=== PATIENT | female | born 1985 | race Caucasian/White ===

== ENCOUNTER 2017-03-01 08:11 | Inpatient (IN) | payer BC, OTHER ==
[~2017-03-01] VITALS: Ht 162.6 cm; Wt 61.2 kg
[2017-03-01 12:45] VITALS: BP 108/64
[2017-03-01] MEDS ORDERED: CLONIDINE HCL 0.1 MG TABLET PO PRN (12:45)
[2017-03-01] MEDS ORDERED: DICYCLOMINE HCL 20 MG TABLET PO PRN (12:45)
[2017-03-01] MEDS ORDERED: HYDROXYZINE PAMOATE 25 MG CAPSULE PO PRN (12:45)
[2017-03-01] MEDS ORDERED: LORAZEPAM 1 MG TABLET PO PRN ×2 (12:45)
[2017-03-01] MEDS ORDERED: LOPERAMIDE HCL 2 MG CAPSULE PO PRN ×2 (12:45)
[2017-03-01] MEDS ORDERED: IBUPROFEN 600 MG TABLET PO PRN (12:45)
[2017-03-01] MEDS ORDERED: METHOCARBAMOL 750 MG TABLET PO PRN (12:45)
[2017-03-01] MEDS ORDERED: diphenhydrAMINE 50 MG CAPSULE PO PRN (12:45)
[2017-03-01] MEDS ORDERED: MIRALAX 17 GM POWD.PACK PO PRN (12:45)
[2017-03-01] MEDS ORDERED: BUPRENORPHINE HCL 2 MG TAB.SUBL SL PRN (12:45)
[2017-03-01] MEDS ORDERED: ALBUTEROL SULFATE 2.5 MG/ 0.5 ML NEBU NEB PRN (12:45)
[2017-03-01] MEDS ORDERED: MAG HYDROX/AL HYDROX/SIMETH 30 ML LIQUID UDC PO PRN (12:45)
[2017-03-01] MEDS ORDERED: ONDANSETRON 4 MG/2 ML VIAL IM PRN (12:45)
[2017-03-01] MEDS ORDERED: MAGNESIUM HYDROXIDE 30 ML LIQUID UDC PO PRN (12:45)
[2017-03-01] MEDS ORDERED: LORAZEPAM 2 MG/1 ML VIAL IM PRN (12:45)
--- NOTE | 2017-03-01 12:50 | NUR ---
Intake assessment Pt seen down in intake, VS are stable. Pt is cleared to come up to unit. Will continue intake assessment upon arrival to unit. Dr Carter has seen pt in intake and has already placed orders.
--- NOTE | 2017-03-01 12:53 | NUR ---
Admission Note Pt was admitted for benzo, ETOH and opiate dependence. Pt ambulated on the unit, is primary source of information. Denies any allergies to foods of medications. Pt is a full code, on a regular diet. Pt VS upon admission are: BP 111/63, HR 112 T 97.9 R: 18 SpO2 98% on RA. Denies any CP or SOB. Pt states she is 5'4'', weighs 135 pounds. Denies any pain. States her LMP was "2 months ago, I have irregular periods". LBM was 02/27/17, pt states this is normal for her. Skin check done, body check done by [employer]. Skin is intact, no open wounds noted. Pt states that she does not want a pna vaccine. Gave verbal consent for HIV test. Pt states she has a PMHx of asthma, and anxiety. Pt home med reconciled, Dr Carter aware. Pt states that she has been to another rehab once in 11/16/16 for 28 days. Pt denies any history of abuse. Pt uses the following substances: ETOH- vodka, 1 pint a day to every other day x 2 months, last used 02/27/17 - 1 pint PO. Benzo- xanax- 1mg daily x 2 months, last use 02/28/17 1mg PO. Heroin- 1GM IV daily x 2 months, last use 0.5 G 03/01/17 prior to admission. Methamphetamine- 0.5GM IV daily x 2 months, last use 03/01/17. Dr Carter is aware of admission, has placed orders for pt to start ativan taper, and subutex taper to begin on 03/02/17 in the AM. Pt states that she does not have a PCP. All needs addressed at this time, pt oriented to unit. Will continue to monitor pt.
[2017-03-01] MEDS ORDERED: NALT50TA PO ×2 (13:48→14:52)
[2017-03-01] MEDS ORDERED: ALBU8.5H8 INH (13:48)
[2017-03-01] MEDS ORDERED: QUET400T PO (13:48)
[2017-03-01] MEDS ORDERED: BUSP10TA3 PO (13:48)
[2017-03-01] MEDS ORDERED: METH4TAB16 PO (13:48)
[2017-03-01] MEDS ORDERED: BECL8.7A6 IH (13:48)
[2017-03-01] MEDS ORDERED: GABA-534 PO (13:48)
[2017-03-01 13:53] LABS: *URINE HCG, QUAL NEGATIVE (NEGATIVE)
[2017-03-01] MEDS ORDERED: THIAMINE HCL 200 MG/2 ML VIAL IM ONE (14:00)
[2017-03-01 14:03] LABS: *AMPHETAMINE, URINE NEGATIVE (NEGATIVE); *BARBITURATE, URINE NEGATIVE (NEGATIVE); *CANNABINOID, URINE NEGATIVE (NEGATIVE); *COCCAINE, URINE NEGATIVE (NEGATIVE); *OPIATE, URINE POSITIVE (NEGATIVE); *PHENCYCLIDINE SCREEN,URINE NEGATIVE (NEGATIVE)
[2017-03-01] MEDS: LORAZEPAM 1 MG TABLET PO SCH ×3 (14:23→21:21)
[2017-03-01] MEDS ORDERED: SUMA100T16 PO (14:39)
[2017-03-01] MEDS ORDERED: SUMA50TA PO (14:39)
[2017-03-01] MEDS ORDERED: PROP10TA10 PO (14:40)
[2017-03-01] MEDS ORDERED: OXCA150T5 PO (14:47)
[2017-03-01] MEDS ORDERED: IBUP-1955 PO (14:49)
[2017-03-01] MEDS ORDERED: MELA5TAB PO (14:50)
[2017-03-01] MEDS ORDERED: DESI25TA16 PO (14:59)
[2017-03-01] MEDS ORDERED: GABAPENTIN 300 MG CAPSULE PO SCH ×3 (15:00→21:00)
[2017-03-01] MEDS ORDERED: RISP2TAB5 PO (15:00)
[2017-03-01] MEDS ORDERED: ALBUTEROL SULFATE 8 GM HFA.AER.AD INH SCH (15:30)
[2017-03-01] MEDS ORDERED: SUMATRIPTAN SUCCINATE 50 MG TABLET PO SCH (15:30)
[2017-03-01 16:50] LABS: BASOPHILS % (AUTO) 0.5 % (0.0-2.0); EOSINOPHILS # (AUTO) 0.2 K/uL (0.0-0.7); EOSINOPHILS % (AUTO) 2.6 % (0.0-7.0); HEMOGLOBIN 14.2 G/DL (12.0-16.0); LYMPHOCYTES # (AUTO) 1.4 K/UL (0.8-4.8); LYMPHOCYTES % (AUTO) 17.2 % (20.5-51.5); MEAN CORPUSCULAR HEMOGLOBIN 30.4 UUG (27.0-31.0); MEAN CORPUSCULAR HGB CONC 34 g/dL (32.0-37.0); MEAN CORPUSCULAR VOLUME 89.8 FL (81.0-99.0); MONOCYTES # (AUTO) 0.5 K/UL (0.1-1.30); MONOCYTES % (AUTO) 5.9 % (0.0-11.0); NEUTROPHILS # (AUTO) 6.3 K/UL (1.8-8.9); NEUTROPHILS % (AUTO) 73.8 % (38.5-71.5); PLATELET COUNT (AUTO) 241 K/UL (150-450); RED BLOOD CELL COUNT(AUTO) 4.67 MIL/UL (4.2-5.4); WHITE BLOOD COUNT (AUTO) 8.4 K/UL (4.0-11.2)
[2017-03-01 16:56] LABS: ETHANOL < 3 MG/DL (0-0)
[2017-03-01 16:57] LABS: ALANINE AMINOTRANSFERASE 107 U/L (14-59); ALKALINE PHOSPHATASE 122 U/L (50-136); ASPARTATE AMINOTRANSFERASE 39 U/L (15-37); BILIRUBIN,TOTAL 0.2 mg/dL (0.2-1.0); CARBON DIOXIDE 30 mmol/L (21-32); CHLORIDE 101 mmol/L (98-107); CREATININE 0.9 mg/dL (0.6-1.3); GLUCOSE 116 mg/dL (74-106); MAGNESIUM 1.7 mg/dL (1.8-2.4); POTASSIUM 4.1 mmol/L (3.5-5.1); TOTAL PROTEIN, SERUM 7.7 g/dL (6.4-8.2); UREA NITROGEN, BLOOD 16 mg/dL (7-18)
[2017-03-01 16:58] LABS: AMYLASE 37 U/L (25-115); LIPASE 127 U/L (73-393)
[2017-03-01 17:00] VITALS: BP 121/74
[2017-03-01] MEDS: GABAPENTIN 400 MG CAPSULE PO SCH (17:00)
[2017-03-01] MEDS ORDERED: PROAIR IH PRN (17:15)
[2017-03-01] MEDS ORDERED: Medication Not On Formulary EA (Melatonin 1 TAB) PO SCH (18:00)
--- NOTE | 2017-03-01 19:04 | NUR ---
End of shift note Pt was admitted for benzo, etoh, and opiate dependence. Pt has a PMHx of anxiety and asthma. Pt denies any allergies, is a full code and a regular diet. Pt started on an ativan taper during the shift, pt is on PRN subutex to manage her s/s of opiate withdrawal. Pt has a recent COWS of 6 and CIWA of 4. Pt ate 100% of her meals, drank 1355ml of fluids, had 3 voids. Pt did not require any PRN medication. All needs addressed at this time. SBAR report to be given to oncoming shift.
--- NOTE | 2017-03-01 19:45 | NUR ---
Start of Shift Note Pt was admitted today for benzo, ETOH and opiate dependence. She has NKA. Pt is a full code, on a regular diet. Pt uses the following substances: ETOH- vodka, 1 pint a day to every other day x 2 months, last used 02/27/17 - 1 pint PO. Benzo- xanax- 1mg daily x 2 months, last use 02/28/17 1mg PO. Heroin- 1GM IV daily x 2 months, last use 0.5 G 03/01/17 prior to admission. Methamphetamine- 0.5GM IV daily x 2 months, last use 03/01/17. Patient has a past medical history of asthma, and anxiety. Patient to start ativan taper, and subutex taper to begin on 03/02/17 in the AM. Last CIWA 6, COWS 4. EKG ordered for increased HR. Safety precautions in place, bed in lowest position, side rails up x 2. All needs addressed at this time, pt oriented to unit. Will continue to monitor pt.
[2017-03-01 20:00] VITALS: BP 99/60
[2017-03-01] MEDS: MELATONIN 5MG PO SCH (21:21)
[2017-03-02 00:04] VITALS: BP 118/71
[2017-03-02 04:00] VITALS: BP 118/71
--- NOTE | 2017-03-02 07:00 | NUR ---
End of shift report: Patient is a 31 year old female admitted on 03-02-17 for Benzodiazepine, ETOH, and opiate detox. Patient has past medical history of Asthma and anxiety. She has NKA, is a full code, and on a regular diet. Patient will begin Subutex and Ativan taper this AM. Vital signs at 2000: 99/60, P 110, T 98.2, SPO2 95% on RA. R 16. COWS 4, CIWA 1. VS at 0000: BP 127/74, P 71, SPO2 97%, T 98.1, R 16. COWS 1, CIWA 2. Patient VS at 0400 BP 108/72, P 103, SPO2 97% on RA, R 16, T 98.0 CIWA 1, COWS 3.. Patient had EKG completed on 03-01-17 for tachychardia. Intake 473 ml Output 1 void Slept a total of 10 hours. Safety measures in place. Bed in lowest position, call light in reach. Endorsement to AM nurse.
--- NOTE | 2017-03-02 07:01 | NUR ---
Start of Shift Notes: Received patient in her room. Alert and oriented x 4. Verbally responsive. Able to make needs known. Respirations even and unlabored. No SOB noted. SKin warm and dry to touch. Abdomen soft and non-distended. BS (+) in all 4 quadrants. No complains of N/V/D or constipation noted. Voids independently. Ambulatory ad chris with steady gait. Patient is a 31 year old female admitted for BZO/ETOH and opiate dependence who was placed on a 5-day Ativan and 5-day Subutex taper as ordered. 5-day Ativan was started on 03/01/2017 and 5-day Subutex taper will be started today. Has past medical hx of asthma, and anxiety. NKA. FULL CODE. Regular diet. On fall and seizure precautions. Prior to admission, patient was using 1 mg of Xanax PO, 1 pint of Vodka, 1 gram of Heroin IV and 1/2 gram of methamphetamine IV. Educated patient on her current plan of care for the day and her medication regimen. Encouraged oral fluid intake and encouraged group participation to learn new skills to prevent relapse. On fall and seizure precautions. Will continue to monitor closely.
[2017-03-02 08:34] VITALS: BP 118/81
[2017-03-02] MEDS: FOLIC ACID 1 MG TABLET PO SCH (08:38)
[2017-03-02] MEDS: GABAPENTIN 400 MG CAPSULE PO SCH ×3 (08:38→17:10)
[2017-03-02] MEDS: DOCUSATE SODIUM 250 MG CAPSULE PO SCH (08:38)
[2017-03-02] MEDS: MULTIVITAMINS,THERAPEUTIC TABLET PO SCH (08:38)
[2017-03-02] MEDS: LORAZEPAM 1 MG TABLET PO SCH ×3 (08:39→21:35)
[2017-03-02] MEDS: QVAR 80MCG INH SCH ×2 (08:39→21:39)
[2017-03-02] MEDS: THIAMINE HCL 100 MG TABLET PO SCH (08:39)
[2017-03-02] MEDS: BUPRENORPHINE HCL 2 MG TAB.SUBL SL SCH ×4 (08:40→21:34)
[2017-03-02] MEDS ORDERED: TUBERCULIN,PURIF.PROT.DERIV. 5 TU/0.1 ML TEST ID ONE (09:00)
[2017-03-02] MEDS ORDERED: 5 DAY TAPER BUPRENORPHINE -SERENITY PROTOCOL SL PRN (09:00)
[2017-03-02] MEDS ORDERED: PROPRANOLOL HCL 10 MG TABLET PO SCH (11:15)
[2017-03-02 13:04] VITALS: BP 118/82
[2017-03-02] MEDS: ONDANSETRON ODT 4 MG TAB.RAPDIS SL PRN ×3 (13:06→22:37)
[2017-03-02] MEDS: busPIRone 10 MG TABLET PO SCH ×2 (13:06→17:10)
--- NOTE | 2017-03-02 13:06 | NUR ---
PRN ZOFRAN Patient c/o nausea, administered Zofran 4mg sl as ordered, will monitor effectiveness of medication.
[2017-03-02] MEDS: PROPRANOLOL HCL 10 MG TABLET PO SCH ×2 (13:09→17:10)
[2017-03-02] MEDS: METHYLPREDNISOLONE 4 MG PO SCH ×2 (13:16→17:12)
--- NOTE | 2017-03-02 13:51 | NUR ---
ZOFRAN REASSESSMENT/PRN ZOFRAN IM Medication effective, patient reports still feels nauseous, and had one episode of vomiting. Patient was administered Zofran 4mg IM as ordered, will monitor effectiveness, MD aware.
[2017-03-02] MEDS ORDERED: LORAZEPAM 1 MG TABLET PO ONE (14:15)
--- NOTE | 2017-03-02 14:21 | NUR ---
ZOFRAN REASSESSMENT Patient reports Zofran 4mg IM injection with relief, no c/o nausea, no further episodes of vomiting noted, will continue to monitor.
[2017-03-02] MEDS ORDERED: SUMATRIPTAN SUCCINATE 50 MG TABLET PO PRN (15:30)
[2017-03-02 17:00] VITALS: BP 100/70
--- NOTE | 2017-03-02 18:37 | NUR ---
END OF SHIFT Patient alert and oriented x4, vital signs were stable during shift. Patient with admitting Dx: ETOH/BZO/opiate dependence, patient started on 5 day Ativan taper as ordered and started on Subutex taper as ordered, well tolerated, first dose of Subutex administered at 0900 as ordered, well tolerated, no ASE noted. 0900 assessment patient presented with: tremors that can be felt but not seen, anxiety, mild head fullness, heart rate of 114, restlessness, mild bone and joint aches, nasal stuffiness, stomach cramps, and tremors that can be felt but not seen, with cow score of: 9 and ciwa score of: 7; 1300 assessment patient presented with: nausea, tremors that can be felt but not seen, anxiety, mild head fullness, heart rate of 105, restlessness, mild bone and joint aches, nasal stuffiness, stomach cramps, and tremors that can be felt but not seen, with cow score of: 10 and ciwa score of:11; 1700 patient presented with: c/o chills, restlessness, dilated pupils, mild bone and joint aches, tremors that can be felt but not seen, anxiety and barely sweating with cow score of: 9 and ciwa score of: 6. Detox medications effective at reducing withdrawal symptoms. Encouraged adequate PO fluid intake as tolerated. During shift patient received PRN: Zofran Po and Zofran IM as ordered, medications effective one hour post administration. Patient denies any SI/HI. Encouraged patient to attend group therapies/sessions to learn new coping skills to prevent relapse. Vital signs were stable during shift. Safety measures in place. Will continue to monitor.
--- NOTE | 2017-03-02 19:15 | NUR ---
START OF SHIFT NOTE : Pt. is 31 years old female admitted for ETOH/BZO/opiate dependence. ,patient started on 5 day Ativan taper as ordered and started on Subutex taper as ordered, well tolerated, no ASE noted. 1700 patient presented with: c/o chills, restlessness, dilated pupils, mild bone and joint aches, tremors that can be felt but not seen, anxiety and barely sweating with cow score of: 9 and ciwa score of: 6. Detox medications effective at reducing withdrawal symptoms. Encouraged adequate PO fluid intake as tolerated. Patient denies any SI/HI. Encouraged patient to attend group therapies/sessions to learn new coping skills to prevent relapse. Safety measures in place : bed on lowest position with side rails x2 up for safety, call light within reach. Will continue to monitor closely and offer help.
[2017-03-02 20:00] VITALS: BP 140/77
--- NOTE | 2017-03-02 21:33 | NUR ---
PRN ZOFRAN Pt. complains of nausea, vomited x1. PRN ZOFRAN given as ordered. Safety measures in place : bed on lowest position with side rails x2 up for safety, call light within reach. Will continue to monitor closely and offer help.
[2017-03-02] MEDS: QUETIAPINE FUMARATE 200 MG TABLET PO SCH (21:34)
[2017-03-02] MEDS: MELATONIN 5MG PO SCH (21:40)
--- NOTE | 2017-03-02 22:33 | NUR ---
REASSESSMENT JAZMÍN Pt. is sleeping , RR=16, unlabored and even. Safety measures in place : bed on lowest position with side rails x2 up for safety, call light within reach. Will continue to monitor closely and offer help.
[2017-03-03 04:00] VITALS: BP 95/61
[2017-03-03 04:08] LABS: HEPATITIS B SURFACE AG Negative (Negative)
--- NOTE | 2017-03-03 06:39 | NUR ---
END OF SHIFT NOTE : Pt. is 31 years old female admitted for ETOH/BZO/opiate dependence. ,patient started on 5 day Ativan taper as ordered and started on Subutex taper as ordered, well tolerated, no ASE noted. 1700 patient presented with: c/o chills, restlessness, dilated pupils, mild bone and joint aches, tremors that can be felt but not seen, anxiety and barely sweating. Detox medications effective at reducing withdrawal symptoms. Encouraged adequate PO fluid intake as tolerated. Patient denies any SI/HI. Encouraged patient to attend group therapies/sessions to learn new coping skills to prevent relapse Pt remains compliant with the treatment plan. PRN ZOFRAN given during my shift. V/S remain WNL. RR=16, even and unlabored, lungs clear upon auscultation, abdomen soft and non- distended. Pt. vomited x2 in the evening. LAST CIWA=3 ,COWS=4 at 0400 , QGTLOT=140 ml, voided x 1, slept 10 hours. Safety measures in place : bed on lowest position with side rails x2 up for safety, call light within reach. Will continue to monitor closely and offer help.
--- NOTE | 2017-03-03 07:56 | NUR ---
Start of shift note; Received report from night nurse. Patient is a 31 year old admitted on 03/01/17 for Benzo/ETOH/Opiate dependence. Patient was placed on a 5 day Ativan and 5 day Subutex taper. Patient reported history of asthma and anxiety. NKA, on regular diet and on full code status. Patient received PRN Zofran yesterday for N/V noted to be effective. Patient slept for 10 hours, last COWS is 4 and last CIWA score is 3 at 0400. Patient is on fall and seizure precaution. Bed in lowest position, call light within reach. Will continue to monitor patient.
[2017-03-03 08:00] VITALS: BP 110/72
[2017-03-03] MEDS: QVAR 80MCG INH SCH ×2 (08:43→20:58)
[2017-03-03] MEDS: busPIRone 10 MG TABLET PO SCH ×3 (08:43→16:35)
[2017-03-03] MEDS: DOCUSATE SODIUM 250 MG CAPSULE PO SCH (08:44)
[2017-03-03] MEDS: LORAZEPAM 1 MG TABLET PO SCH ×4 (08:44→20:58)
[2017-03-03] MEDS: FOLIC ACID 1 MG TABLET PO SCH (08:44)
[2017-03-03] MEDS: BUPRENORPHINE HCL 2 MG TAB.SUBL SL SCH ×3 (08:44→20:59)
[2017-03-03] MEDS: MULTIVITAMINS,THERAPEUTIC TABLET PO SCH (08:44)
[2017-03-03] MEDS: THIAMINE HCL 100 MG TABLET PO SCH (08:44)
[2017-03-03] MEDS: GABAPENTIN 400 MG CAPSULE PO SCH ×3 (08:44→16:35)
[2017-03-03] MEDS: PROPRANOLOL HCL 10 MG TABLET PO SCH ×3 (08:44→16:37)
--- NOTE | 2017-03-03 09:30 | NUR ---
Therapist prompted client about group times. Client stated she would try to attend.
[2017-03-03 12:00] VITALS: BP 116/82
[2017-03-03] MEDS: ONDANSETRON ODT 4 MG TAB.RAPDIS SL PRN (13:17)
--- NOTE | 2017-03-03 13:23 | NUR ---
Re-assessment; Patient denies nausea at this time. PRN medication is effective. Will continue to monitor patient.
--- NOTE | 2017-03-03 13:23 | NUR ---
PRN medication; Patient is complaining of nausea no emesis noted. PRN Zofran ODT given for nausea. Will continue to monitor patient for effectiveness of medication.
[2017-03-03 16:00] VITALS: BP 116/73
--- NOTE | 2017-03-03 18:59 | NUR ---
End of shift note; Patient is AOX4. Patient is a 31 year old admitted on 03/01/17 for Benzo/ETOH/Opiate dependence. Patient was placed on a 5 day Ativan and 5 day Subutex taper. Patient reported history of asthma and anxiety. NKA, on regular diet and on full code status. Patient remained compliant with treatment plan. Medications were effective in reducing withdrawal symptoms. All safety measures secured. Met all needs.
--- NOTE | 2017-03-03 19:15 | NUR ---
START OF SHIFT NOTE : Pt. is 31 years old female admitted for ETOH/BZO/opiate dependence. ,patient started on 5 day Ativan taper as ordered and started on Subutex taper as ordered, well tolerated, no ASE noted. 1700 patient presented with: c/o chills, restlessness, dilated pupils, mild bone and joint aches, tremors that can be felt but not seen, anxiety and barely sweating with cow score of: 5 and ciwa score of: 2 at 16:00. Detox medications effective at reducing withdrawal symptoms. Encouraged adequate PO fluid intake as tolerated. Patient denies any SI/HI. Encouraged patient to attend group therapies/sessions to learn new coping skills to prevent relapse. Safety measures in place : bed on lowest position with side rails x2 up for safety, call light within reach. Will continue to monitor closely and offer help.
[2017-03-03 20:00] VITALS: BP 128/76
[2017-03-03] MEDS: MELATONIN 5MG PO SCH (20:57)
[2017-03-03] MEDS: QUETIAPINE FUMARATE 200 MG TABLET PO SCH (20:59)
--- NOTE | 2017-03-04 06:34 | NUR ---
END OF SHIFT NOTE : Pt. is 31 years old female admitted for ETOH/BZO/opiate dependence. ,patient started on 5 day Ativan taper as ordered and started on Subutex taper as ordered, well tolerated, no ASE noted. Detox medications effective at reducing withdrawal symptoms. Encouraged adequate PO fluid intake as tolerated. Patient denies any SI/HI. Encouraged patient to attend group therapies/sessions to learn new coping skills to prevent relapse. Pt remains compliant with the treatment plan. No PRNs were given during my shift. V/S remain WNL. RR=16, even and unlabored, lungs clear upon auscultation, abdomen soft and non- distended. Pt denies nausea, vomiting and diarrhea. LAST CIWA=2 ,COWS=3 at 0400 , INTAKE= 500 ml, voided x2 , slept 6 hours. Safety measures in place : bed on lowest position with side rails x2 up for safety, call light within reach. Will continue to monitor closely and offer help.
--- NOTE | 2017-03-04 07:50 | NUR ---
Start of shift note; Received report from night nurse. Patient is a 31 year old admitted on 03/01/17 for Benzo/ETOH/Opiate dependence. Patient was placed on a 5 day Ativan and 5 day Subutex taper. Patient reported history of asthma and anxiety. NKA, on regular diet and on full code status. Patient slept for 6 hours. Patient is on fall and seizure precaution. Bed in lowest position, call light within reach. Patient had an uneventful night. Will continue to monitor patient.
[2017-03-04 08:00] VITALS: BP 107/78
[2017-03-04] MEDS: GABAPENTIN 400 MG CAPSULE PO SCH ×3 (08:37→16:45)
[2017-03-04] MEDS: QVAR 80MCG INH SCH ×2 (08:37→21:32)
[2017-03-04] MEDS: MULTIVITAMINS,THERAPEUTIC TABLET PO SCH (08:38)
[2017-03-04] MEDS: DOCUSATE SODIUM 250 MG CAPSULE PO SCH (08:38)
[2017-03-04] MEDS: FOLIC ACID 1 MG TABLET PO SCH (08:38)
[2017-03-04] MEDS: LORAZEPAM 1 MG TABLET PO SCH ×3 (08:38→21:32)
[2017-03-04] MEDS: PROPRANOLOL HCL 10 MG TABLET PO SCH ×3 (08:38→16:45)
[2017-03-04] MEDS: THIAMINE HCL 100 MG TABLET PO SCH (08:38)
[2017-03-04] MEDS: busPIRone 10 MG TABLET PO SCH ×3 (08:38→16:45)
[2017-03-04] MEDS ORDERED: BUPRENORPHINE HCL 2 MG TAB.SUBL SL SCH (09:00)
[2017-03-04 12:00] VITALS: BP 118/78
[2017-03-04] MEDS: BUPRENORPHINE HCL 2 MG TAB.SUBL SL SCH ×2 (15:29→21:33)
[2017-03-04 16:00] VITALS: BP 119/80
--- NOTE | 2017-03-04 18:34 | NUR ---
End of shift note; Patient is AOX4. Patient is a 31 year old admitted on 03/01/17 for Benzo/ETOH/Opiate dependence. Patient was placed on a 5 day Ativan and 5 day Subutex taper. Patient reported history of asthma and anxiety. NKA, on regular diet and on full code status. Patient remained compliant with treatment plan. Medications were effective in reducing withdrawal symptoms. Patient participated in group activities and therapies. All safety measures secured. Met all needs.
--- NOTE | 2017-03-04 19:15 | NUR ---
START OF SHIFT NOTE : Pt. is 31 years old female admitted for ETOH/BZO/opiate dependence. ,patient started on 5 day Ativan taper as ordered and started on Subutex taper as ordered, well tolerated, no ASE noted. Pt. is at meeting right now. Detox medications effective at reducing withdrawal symptoms. Encouraged adequate PO fluid intake as tolerated. Patient denies any SI/HI. Encouraged patient to attend group therapies/sessions to learn new coping skills to prevent relapse. Safety measures in place : bed on lowest position with side rails x2 up for safety, call light within reach. Will continue to monitor closely and offer help.
[2017-03-04 20:00] VITALS: BP 130/78
[2017-03-04] MEDS: QUETIAPINE FUMARATE 200 MG TABLET PO SCH (21:32)
[2017-03-04] MEDS: MELATONIN 5MG PO SCH (21:32)
--- NOTE | 2017-03-05 06:34 | NUR ---
END OF SHIFT NOTE : Pt. is 31 years old female admitted for ETOH/BZO/opiate dependence ,patient started on 5 day Ativan taper as ordered and started on Subutex taper as ordered, well tolerated, no ASE noted. Pt. is at meeting right now. Detox medications effective at reducing withdrawal symptoms. Pt remains compliant with the treatment plan. No PRNs were given during my shift. V/S remain WNL. RR=16, even and unlabored, lungs clear upon auscultation, abdomen soft and non- distended. Pt denies nausea, vomiting and diarrhea. LAST CIWA=2 ,COWS=3 at 0400 , QMHFEW=9304 ml, voided x3 , slept 8 hours. Safety measures in place : bed on lowest position with side rails x2 up for safety, call light within reach. Will continue to monitor closely and offer help.
--- NOTE | 2017-03-05 07:09 | NUR ---
Start of Shift Endorsement received from nightshift nurse. Pt is a31 y/o female admitted for benzo, alcohol and heroin dependence. Pt has been placed on a 5 day Ativan and 5 day Subutex taper. Pt is tolerating the tapers and mildly withdrawing AEB CIWA 2, COWS 2 at 0400. Pt did not receive any PRN medications and reports sleeping 8 hours. VS WNL, Full Code. PT is alert and oriented x4. Pt is in STABLE condition at this time. Remains compliant with medication and diet regimen. All needs have been met, All safety measures in place per hospital policy. Bed in lowest position, side rails up x2, call-light within reach. Will continue to monitor
[2017-03-05 08:00] VITALS: BP 115/72
[2017-03-05] MEDS: FOLIC ACID 1 MG TABLET PO SCH (08:45)
[2017-03-05] MEDS: GABAPENTIN 400 MG CAPSULE PO SCH ×3 (08:45→18:09)
[2017-03-05] MEDS: BUPRENORPHINE HCL 2 MG TAB.SUBL SL SCH ×3 (08:46→20:40)
[2017-03-05] MEDS: PROPRANOLOL HCL 10 MG TABLET PO SCH ×3 (08:47→18:09)
[2017-03-05] MEDS: THIAMINE HCL 100 MG TABLET PO SCH (08:47)
[2017-03-05] MEDS: DOCUSATE SODIUM 250 MG CAPSULE PO SCH (08:47)
[2017-03-05] MEDS: busPIRone 10 MG TABLET PO SCH ×3 (08:47→18:09)
[2017-03-05] MEDS: LORAZEPAM 1 MG TABLET PO SCH ×2 (08:47→20:40)
[2017-03-05] MEDS: MULTIVITAMINS,THERAPEUTIC TABLET PO SCH (08:47)
[2017-03-05] MEDS: QVAR 80MCG INH SCH ×2 (08:52→21:36)
[2017-03-05 12:00] VITALS: BP 114/70
[2017-03-05 16:00] VITALS: BP 115/71
--- NOTE | 2017-03-05 19:13 | NUR ---
START OF SHIFT NOTE: Patient endorsed by outgoing day shift nurse. Report received. Patient is a 31 year old female t admitted on the [facility] on 03/01/2017 for Benzodiazepines, ETOH, Opioid and Methamphetamine Dependence , continue 5 Day Ativan and 5 Day Subutex Taper with tolerated well without ASE. Patient reports NKA. Patient is Full Code, Regular Diet. Patient is Fall and Seizures Precautions. Patients denies Seizures Hx r/t withdrawal from substances. Upon endorsement patient is in his Room alert and oriented x 4. Speech is soft and clear. Patient is cooperative, friendly, and verbally appropriate. VS: T: 98.6; BP:112/76; HR: 95; RR:18; O2 SAT:100%. Patient reports generalized "body aches 5/10". Patient educated non-pharmacological method that can be used to help control pain. Patient returned her knowledge back by verbalized understanding. COWS 7, CIWA 7. Patient presented with anxiety, agitation, nervousness, sweats, restlessness, body aches, and fatigue. Patient denies N/V, and diarrhea. Patient denies current SI/HI. Respirations unlabored and even. Patient denies SOB and chest pain. Skin is intact, warm and dry to touch. Encourage fluids as tolerated. Encourage to attend activities groups. All needs met. Safety measures on place. Call light within reach, bed in lowest position and locked, padded rails up bilaterally.
--- NOTE | 2017-03-05 19:13 | NUR ---
End of Shift Endorsement given to nightshift nurse. Pt is a 31 y/o female admitted for benzo, alcohol and heroin dependence. Pt has been placed on a 5 day Ativan and 5 day Subutex taper. Pt is tolerating the tapers and mildly withdrawing AEB CIWA 4, COWS 5 at 0400. Pt did not receive any PRN medications, Pt participated in groups and activities. Pt reports readiness for discharge. Educated pt on S/E of medications and diet regimen. Intake: 2180ml, Void x2, BM x0. VS WNL, Full Code. PT is alert and oriented x4. Pt is in STABLE condition at this time. Remains compliant with medication and diet regimen. All needs have been met, All safety measures in place per hospital policy. Bed in lowest position, side rails up x2, call-light within reach. Will continue to monitor
[2017-03-05 20:00] VITALS: BP 112/76
[2017-03-05] MEDS: QUETIAPINE FUMARATE 200 MG TABLET PO SCH (20:40)
--- NOTE | 2017-03-05 20:40 | NUR ---
PRN MOTRIN 600 MG 1TAB PO ADMINISTRATION. Patient c/o generalized body aches "5/10"and asked aid. PRN Motrin 600 mg 1 tab PO administrated with full glass of water as ordered. Patient tolerated well. All needs met. Safety measures on place. Call light within reach, bed in lowest position and locked, padded rails up bilaterally rails up bilaterally. Will continue to monitor closely.
[2017-03-05] MEDS: MELATONIN 5MG PO SCH (21:00)
--- NOTE | 2017-03-05 21:40 | NUR ---
RE-ASSESSMENT Patient is sleeping. Respirations even and unlabored. RR:15. PRN Motrin PO was effective. All needs met. Safety measures on place. Call light within reach, bed in lowest position and locked, padded rails up bilaterally rails up bilaterally. Will continue to monitor closely.
[2017-03-06] VITALS: BP 98/67
[2017-03-06 04:00] VITALS: BP 99/69
--- NOTE | 2017-03-06 06:51 | NUR ---
END OF SHIFT NOTE: Patient endorsed to day shift nurse. Report given. Patient is a 31 year old female admitted on the [facility] on 03/01/2017 for Benzodiazepines, ETOH, Opioid and Methamphetamine dependence , continue 5 Day Ativan and 5 Day Subutex Taper with tolerated well without ASE. Patient reports NKA. Patient is Full Code, Regular Diet, is Fall and Seizures Precautions. Patients denies Seizures Hx r/t withdrawal from substances. Last VS at 0400: T: 97.8; BP: 99/69; HR: 97; RR:15; RA O2 SAT: 99%. Pain level: "0/10". Last COWS 5 at 0400, CIWA 3 at 0400. Patient presented with anxiety, agitation, nervousness, tremors that can be felt , sweats, restlessness, body aches, and fatigue. Patient denies N/V, and diarrhea. Patient denies current SI/HI. Respirations unlabored and even. Patient denies SOB and chest pain. Skin is intact, warm and dry to touch. Encourage fluids as tolerated. Encourage to attend activities groups. PRN Motrin PO administrated last night was effective. Patient slept 5 hours 30 min., intake 650 ml, voided x2. All needs met. Safety measures on place. Call light within reach, bed in lowest position and locked, padded rails up bilaterally.
--- NOTE | 2017-03-06 07:08 | NUR ---
Start of Shift Endorsement received from nightshift nurse. Pt is a31 y/o female admitted for benzo, alcohol and heroin dependence. Pt has been placed on a 5 day Ativan and 5 day Subutex taper. Pt is tolerating the tapers and mildly withdrawing AEB CIWA 5, COWS 3 at 0400. Pt received PRN Motrin. Pt reports sleeping 5 hours. VS WNL, Full Code. PT is alert and oriented x4. Pt is in STABLE condition at this time. Remains compliant with medication and diet regimen. All needs have been met, All safety measures in place per hospital policy. Bed in lowest position, side rails up x2, call-light within reach. Will continue to monitor
[2017-03-06 08:00] VITALS: BP 101/63
[2017-03-06] MEDS: PROPRANOLOL HCL 10 MG TABLET PO SCH ×3 (08:17→17:06)
[2017-03-06] MEDS: THIAMINE HCL 100 MG TABLET PO SCH (08:17)
[2017-03-06] MEDS: MULTIVITAMINS,THERAPEUTIC TABLET PO SCH (08:17)
[2017-03-06] MEDS: busPIRone 10 MG TABLET PO SCH ×3 (08:17→17:06)
[2017-03-06] MEDS: GABAPENTIN 400 MG CAPSULE PO SCH ×3 (08:17→17:06)
[2017-03-06] MEDS: FOLIC ACID 1 MG TABLET PO SCH (08:17)
[2017-03-06] MEDS: QVAR 80MCG INH SCH ×2 (08:18→20:23)
[2017-03-06] MEDS ORDERED: BUPRENORPHINE HCL 2 MG TAB.SUBL SL SCH (09:00)
[2017-03-06 12:00] VITALS: BP 107/72
[2017-03-06 15:16] LABS: *AMPHETAMINE, URINE NEGATIVE (NEGATIVE); *BARBITURATE, URINE NEGATIVE (NEGATIVE); *CANNABINOID, URINE NEGATIVE (NEGATIVE); *COCCAINE, URINE NEGATIVE (NEGATIVE); *OPIATE, URINE POSITIVE (NEGATIVE); *PHENCYCLIDINE SCREEN,URINE NEGATIVE (NEGATIVE)
[2017-03-06 16:00] VITALS: BP 115/72
--- NOTE | 2017-03-06 19:09 | NUR ---
End of Shift Endorsement given to nightshift nurse. Pt is a 31 y/o female admitted for benzo, alcohol and heroin dependence. Pt has been placed on a 5 day Ativan and 5 day Subutex taper. Pt is tolerating the tapers and mildly withdrawing AEB CIWA 5, COWS 6 at 1600. Pt did not receive any PRN medications, Pt participated in groups and activities. Pt reports readiness for discharge. Encouraged pt to participate in groups and activities. Intake: 1890ml, Void x3, BM x1. VS WNL, Full Code. PT is alert and oriented x4. Pt is in STABLE condition at this time. Remains compliant with medication and diet regimen. All needs have been met, All safety measures in place per hospital policy. Bed in lowest position, side rails up x2, call-light within reach. Will continue to monitor
[2017-03-06 20:00] VITALS: BP 104/65
--- NOTE | 2017-03-06 20:00 | NUR ---
1999 Patient received awake, alert and just returning to her room # [id number] from [employer] group in recreation room. Gait is brisk, steady. Patient responds to nurse's greeting and introduction with a smile and " Hi, oh you're my nurse now?" Patient is oriented to person, place, day, date, time and her personal situation. Patient's color is pink and her skin is warm, dry and intact. patient states that she is being discharged tomorrow to a rehab facility and she is looking forward to that. Patient states further that she was been regularly attending all [employer] groups, taking her Regular diet trays and drinking various fluids ad chris with no gastric issues. Patient denies any pain or other discomforts at this time. Vital signs are: 98-96-16 104/65, O2 Sat 99%, COWS 2, CIWA 1. Patient was admitted on 03/01/17 for: Benzo, Alcohol, Heroin and Methamphetamine withdrawal and she has completed both a 5-Day Ativan medication taper and a 4-Day Subutex medication taper at this time. Patient states that she is going to go downstairs to hospital [facility] soon for a smoke break. No requests offered at this time. Bed is locked and in lowest position, bed rails are up X 1 and call light within patient's easy reach.
[2017-03-06] MEDS ORDERED: QUET200T PO (20:05)
[2017-03-06] MEDS ORDERED: IBUP-1955 PO (20:05)
[2017-03-06] MEDS ORDERED: HYDR-3895 PO (20:05)
[2017-03-06] MEDS ORDERED: GABA-536 PO (20:05)
[2017-03-06] MEDS ORDERED: METH-406 PO (20:05)
[2017-03-06] MEDS ORDERED: DICY20TA28 PO (20:05)
[2017-03-06] MEDS ORDERED: DIPH50CA37 PO (20:05)
[2017-03-06] MEDS: QUETIAPINE FUMARATE 200 MG TABLET PO SCH (20:23)
[2017-03-06] MEDS: MELATONIN 5MG PO SCH (20:23)
--- NOTE | 2017-03-07 | NUR ---
Patient refused to be awakened for V/S to be done at this time.
--- NOTE | 2017-03-07 04:00 | NUR ---
Patient refused to be awakened for V/S to be done at this time.
--- NOTE | 2017-03-07 06:30 | NUR ---
0630 Patient slept a total of 8 hours and she had 3 voids and no stools. Total intake was 1,096 ml p.o. No Prn medications given this shift. V/SS afebrile, last COWS 2, last CIWA 1 at 1999. Patient is presently sleeping comfortably in stable condition with eyes closed and respirations quiet, even , unlabored at 12.
--- NOTE | 2017-03-07 07:05 | NUR ---
Start of Shift Endorsement received from nightshift nurse. Pt is a31 y/o female admitted for benzo, alcohol and heroin dependence. Pt has been placed on a 5 day Ativan and 5 day Subutex taper. Pt is tolerating the tapers and mildly withdrawing AEB CIWA 2, COWS 1 at 0400. Pt did not receive any PRN medications. Pt reports sleeping 8 hours. Pt has been scheduled to be discharged today. All discharge education has been completed, pt reports readiness to be discharged. All documentation has been signed and dated. VS WNL, Full Code. PT is alert and oriented x4. Pt is in STABLE condition at this time. Remains compliant with medication and diet regimen. All needs have been met, All safety measures in place per hospital policy. Bed in lowest position, side rails up x2, call-light within reach. Will continue to monitor
[2017-03-07 08:31] VITALS: BP 111/71
[2017-03-07] MEDS: MULTIVITAMINS,THERAPEUTIC TABLET PO SCH (08:31)
[2017-03-07] MEDS: busPIRone 10 MG TABLET PO SCH (08:31)
[2017-03-07] MEDS: FOLIC ACID 1 MG TABLET PO SCH (08:31)
[2017-03-07] MEDS: PROPRANOLOL HCL 10 MG TABLET PO SCH (08:31)
[2017-03-07] MEDS: THIAMINE HCL 100 MG TABLET PO SCH (08:31)
[2017-03-07] MEDS: QVAR 80MCG INH SCH (08:32)
[2017-03-07] MEDS: GABAPENTIN 400 MG CAPSULE PO SCH (08:32)
--- NOTE | 2017-03-07 09:50 | NUR ---
Discharge note PT has been discharged from [facility] to [facility]. PT is in Stable condition, VS WNL. Denies suicidal and homicidal ideations at this time. . All documentation has been completed, paperwork signed and dated. Pt left with all of her belongings, medications and prescriptions. Pt has been discharged from [facility] on 03/07/2017 AT 0950. has been Notified.
== END 2017-03-07 09:50 | disposition other institution (70) | DRG 895 ==
LOC: SRC 11:52
PROVIDERS: ADMIT Internal Medicine; ATTEND Internal Medicine
PROC: HZ2ZZZZ Detoxification Services for Substance Abuse Treatment (ICD-10-PCS; principal; 2017-03-01)
PROC: HZ31ZZZ Individual Counseling for Substance Abuse Treatment, Behavioral (ICD-10-PCS; 2017-03-03)
PROC: HZ41ZZZ Group Counseling for Substance Abuse Treatment, Behavioral (ICD-10-PCS; 2017-03-03)
DX: F11.23 Opioid dependence with withdrawal (principal); E83.42 Hypomagnesemia; F31.60 Bipolar disorder, current episode mixed, unspecified; J45.40 Moderate persistent asthma, uncomplicated; Z59.0 Homelessness; Z59.1 Inadequate housing; F10.230 Alcohol dependence with withdrawal, uncomplicated; F13.230 Sedative, hypnotic or anxiolytic dependence with withdrawal, uncomplicated; Y90.9 Presence of alcohol in blood, level not specified; B19.20 Unspecified viral hepatitis C without hepatic coma; F15.10 Other stimulant abuse, uncomplicated; F17.210 Nicotine dependence, cigarettes, uncomplicated; Z79.899 Other long term (current) drug therapy
CPT/HCPCS: 36415; 70030-TC; 80307; 80361; 83690; 83735; 84703; 85025; 86580; 86592; 86705; 86803; 87340; 87806; 93005; G0480; J2405; J3411; Q0162